=== PATIENT | male | born 1980 | race Two or more races ===

== ENCOUNTER 2017-03-27 20:37 | Emergency (ER) | payer SELFPAY ==
[2017-03-27 22:21] VITALS: BP 115/77
[2017-03-28] MEDS ORDERED: SULFAMETHOXAZOLE/TRIMETHOPRIM 800-160 MG TABLET PO ONE (01:12)
[2017-03-28] MEDS ORDERED: CEPHALEXIN 500 MG CAPSULE PO ONE (01:12)
--- NOTE | 2017-03-28 01:16 | ER Document Report ---
ED Skin Rash/Insect Bite/Abscs - General Chief Complaint: Insect Bite Stated Complaint: LEG PAIN/POSSIBLE BITE Time Seen by Provider: 03/28/17 00:51 Notes: Patient is a 37-year-old male comes emergency department for chief complaint of an infection area on his left lower leg. Patient states that 3 days ago he noticed a boil, he states that the boil popped and drained, he states that he wore a boot today and rubbed off the skin from the area that was infected. He states afterwards the area became red and tender and he became worried. No more drainage, no fever, patient is up-to-date on tetanus, patient denies diabetes or any past medical history. TRAVEL OUTSIDE OF THE [place] IN LAST 30 DAYS: No - Related Data Allergies/Adverse Reactions: No Known Allergies Allergy (Unverified 03/27/17 22:21) Past Medical History - General Information source: Patient - Social History Smoking Status: Never Smoker Drug Abuse: None Lives with: Alone Family History: Reviewed & Not Pertinent Patient has suicidal ideation: No Patient has homicidal ideation: No - Medical History Medical History: Negative Renal/ Medical History: Denies: Hx Peritoneal Dialysis Surgical Hx: Negative - Immunizations Immunizations up to date: Yes Hx Diphtheria, Pertussis, Tetanus Vaccination: Yes Review of Systems - Review of Systems Constitutional: No symptoms reported EENT: No symptoms reported Cardiovascular: No symptoms reported Respiratory: No symptoms reported Gastrointestinal: No symptoms reported Genitourinary: No symptoms reported Male Genitourinary: No symptoms reported Musculoskeletal: No symptoms reported Skin: See HPI Hematologic/Lymphatic: No symptoms reported Neurological/Psychological: No symptoms reported Physical Exam - Vital signs Vitals: Temp Pulse Resp BP Pulse Ox 97.6 F 75 18 115/77 99 03/27/17 22:18 03/27/17 22:18 03/27/17 22:18 03/27/17 22:18 03/27/17 22:18 Interpretation: Normal - General General appearance: Appears well, Alert In distress: None - HEENT Head: Normocephalic, Atraumatic Eyes: Normal Pupils: PERRL - Respiratory Respiratory status: No respiratory distress Chest status: Nontender Breath sounds: Normal Chest palpation: Normal - Cardiovascular Rhythm: Regular Heart sounds: Normal auscultation Murmur: No - Abdominal Inspection: Normal Distension: No distension Bowel sounds: Normal Tenderness: Nontender Organomegaly: No organomegaly - Back Back: Normal, Nontender - Extremities General upper extremity: Normal inspection, Nontender, Normal color, Normal ROM , Normal temperature General lower extremity: Other - Left outer lower extremity over the anterior tibial aspect with a circular area of what appears to be a previous abscess that has been drained and the skin has been scraped away in the superficial layer, there is some mild surrounding erythema, no streaking, no significant abnormal heat, normal knee, ankle, foot exam, normal distal neurovascular exam - Neurological Neuro grossly intact: Yes Cognition: Normal Orientation: AAOx4 [place] Coma Scale Eye Opening: Spontaneous [place] Coma Scale Verbal: Oriented [place] Coma Scale Motor: Obeys Commands [place] Coma Scale Total: 15 Speech: Normal Motor strength normal: LUE, RUE, LLE, RLE Sensory: Normal - Psychological Associated symptoms: Normal affect, Normal mood - Skin Skin Temperature: Warm Skin Moisture: Dry Skin Color: Normal Course - Re-evaluation Re-evalutation: Examination is consistent with a previous abscess and now cellulitis. I did apply an ultrasound over the previous abscess area and I did not see any significant fluid collection except for a possible tiny 1, after discussion with patient and permission I inserted an 18-gauge needle and attempted to aspirate, no purulent material or other abnormality was noted. Consistent with cellulitis, no induration. Treating with Bactrim, Keflex, recommend patient elevate the leg, monitor closely, follow up with primary care, and return immediately if the area worsens in any way. This was discussed in detail. Patient states understanding and agreement - Vital Signs Vital signs: Temp Pulse Resp BP Pulse Ox 97.6 F 80 18 115/77 99 03/27/17 22:18 03/28/17 01:26 03/28/17 01:26 03/28/17 01:26 03/28/17 01:26 Discharge - Discharge Clinical Impression: Cellulitis Qualifiers: Site of cellulitis: extremity Site of cellulitis of extremity: lower extremity Laterality: left Qualified Code(s): L03.116 - Cellulitis of left lower limb Condition: Stable Disposition: HOME, SELF-CARE Additional Instructions: Areas consistent with previous abscess, drainage, and cellulitis. Take the antibiotics as directed to completion. Keep clean, apply thin film of antibiotic ointment over the area, apply dressing. Follow-up with primary care closely. Return immediately for any signs of worsening symptoms including spreading redness, swelling, fever , or any other concerning symptoms. Prescriptions: Cephalexin Monohydrate [Keflex 500 mg Capsule] 500 mg PO QID #28 capsule Sulfamethoxazole/Trimethoprim [Bactrim Ds Tablet] 1 each PO BID #14 tablet
== END 2017-03-28 01:27 | disposition home or self-care (01) ==
LOC: ER 20:37
PROC: 0Y9J3ZX Drainage of Left Lower Leg, Percutaneous Approach, Diagnostic (ICD-10-PCS; principal; 2017-03-27)
DX: L03.116 Cellulitis of left lower limb (principal); M79.662 Pain in left lower leg
CPT/HCPCS: 99281